=== PATIENT | female | born 1985 | race Two or more races ===

== ENCOUNTER 2021-07-28 17:08 | Emergency (ER) | payer OTHER ==
[~2021-07-28] VITALS: Ht 154.9 cm; Wt 60.0 kg
[2021-07-28 17:10] VITALS: BP 134/86
--- NOTE | 2021-07-28 19:31 | PHYS DOC ---
General Adult EDM: Chief Complaint: POST-OP PROBLEM HPI: HPI: Patient is a 36-year-old female who presents with green discharge and foul odor for the past 2-1/2 months. Patient is 3 months . "I have had light spotting ever since I had my last baby, and shortly after he started noticing a foul odor and greenish colored discharge". "I also have some nausea and felt like my belly feels bloated all the time". Patient denies fevers, denies dysuria. Patient has followed up with [facility] since giving . Patient has a follow-up appointment tomorrow. Patient denies abdominal pain. G6, P6. Denies medical history. (JAGDISH ELIZALDE APRN) Review of Systems: Review of Systems: Constitutional: Denies fever or chills Eyes: Denies change in visual acuity HENT: Denies nasal congestion or sore throat Respiratory: Denies cough or shortness of breath Cardiovascular: Denies chest pain or edema GI: Denies abdominal pain, nausea, vomiting, bloody stools or diarrhea /vaginal: Denies dysuria. Reports green-colored discharge and foul odor Musculoskeletal: Denies back pain or joint pain Integument: Denies rash Neurologic: Denies headache, focal weakness or sensory changes Endocrine: Denies polyuria or polydipsia Lymphatic: Denies swollen glands Psychiatric: Denies depression or anxiety (JAGDISH ELIZALDE APRN) Allergies: Allergies: Allergies Coded Allergies Type Severity Reaction Last Updated Verified No Known Drug Allergies 07/28/21 No (JAGDISH ELIZALDE APRN) Physical Exam: PE: Constitutional: Well developed, well nourished, no acute distress, non-toxic appearance. [] HENT: Normocephalic, atraumatic, bilateral external ears normal, oropharynx moist, no oral exudates, nose normal. [] Eyes: PERRLA, EOMI, conjunctiva normal, no discharge. [] Neck: Normal range of motion, no tenderness, supple, no stridor. [] Cardiovascular:Heart rate regular rhythm, no murmur [] Lungs & Thorax: Bilateral breath sounds clear to auscultation [] Abdomen: Bowel sounds normal, soft, no tenderness, no masses, no pulsatile masses. [] Skin: Warm, dry, no erythema, no rash. [] Back: No tenderness, no CVA tenderness. [] Extremities: No tenderness, no cyanosis, no clubbing, ROM intact, no edema. [] Neurologic: Alert and oriented X 3, normal motor function, normal sensory function, no focal deficits noted. [] Psychologic: Affect normal, judgement normal, mood normal. [] (JAGDISH ELIZALDE APRN) Current Patient Data: Vital Signs: Vital Signs Date Time Temp Pulse Resp B/P (MAP) Pulse Ox O2 Delivery O2 Flow Rate FiO2 07/28/21 17:08 98.4 66 16 134/86 (102) 98 Room Air (JAGDISH ELIZALDE APRN) EKG: EKG: [] (JAGDISH ELIZALDE APRN) Radiology/Procedures: Radiology/Procedures: [] (JAGDISH ELIZALDE APRN) Heart Score: C/O Chest Pain: No Risk Factors: Risk Factors: DM, Current or recent (<one month) smoker, HTN, HLP, family history of CAD, obesity. Risk Scores: Score 0 - 3: 2.5% MACE over next 6 weeks - Discharge Home Score 4 - 6: 20.3% MACE over next 6 weeks - Admit for Clinical Observation Score 7 - 10: 72.7% MACE over next 6 weeks - Early Invasive Strategies (JAGDISH ELIZALDE APRN) Course & Med Decision Making: Course & Med Decision Making Pertinent Labs and Imaging studies reviewed. (See chart for details) [] 36-year-old female presents 3 months with complaints of green discharge and foul odor. Patient also reports slight vaginal bleeding since the of her child. Patient is G6, P6. Patient is afebrile. Denies abdominal pain. Does report some intermittent nausea. GC/Chlamydia ordered for UA. Wet prep ordered to rule out BV and yeast. Will check urine for infection as well. Patient states that she is not concerned about STDs. Explained to patient that results for GC and chlamydia would take a couple of days. Patient has a follow-up appointment with her [facility]ESS[facility] tomorrow regarding same complaints. Patient reports that she needs to leave the emergency room and cannot wait for results. Advised patient we would follow-up tomorrow with vaginal swab results. Patient's pressures been okay with discharge plan. (JAGDISH ELIZALDE APRN) Donis Disclaimer: Dragon Disclaimer: This electronic medical record was generated, in whole or in part, using a voice recognition dictation system. (JAGDISH ELIZALDE APRN) Departure Departure: Impression: Primary Impression: Vaginal discharge Disposition: 01 HOME / SELF CARE / HOMELESS Condition: STABLE Referrals: PCP,NO (PCP) Additional Instructions: You were seen in the emergency room for vaginal discharge and odor. You have an appointment tomorrow with your [facility]ESSER. Make sure that you follow-up. I will follow up with you tomorrow with test results from vaginal swabs. If there is an infection present I will send you a prescription to your pharmacy of choice. EMERGENCY DEPARTMENT GENERAL DISCHARGE INSTRUCTIONS Thank you for coming to [facility] (ED) today and trusting us with you care. We trust that you had a positivie experience in our Emergency Department. If you wish to speak to the department management, you may call the director at [phone]. YOUR FOLLOW UP INSTRUCTIONS ARE FOLLOWS: 1. Do you have a private Doctor? If you do not have a private doctor, please ask for a resource list of physicians or clinics that may be able to assist you with follow up care. 2. The Emergency Physician has interpreted your x-rays. The X-Ray specialist will also review them. If there is a change in the findings, you will be notified in 48 hours when at all possible. 3. A lab test or culture has been done, your results will be reviewed and you will be notified if you need a change in treatment. ADDITIONAL INSTRUCTIONS AND INFORMATION: 1. Your care today has been supervised by a physician who is specially trained in emergency care. Many problems require more than one evaluation for a complete diagnosis and treatment. We recommend that you schedule your follow up appointment as recommended to ensure complete treatment of you illness or injury. If you are unable to obtain follow up care and continue to have a problem, or if your condition worsens, we recommend that you return to the ED. 2. We are not able to safely determine your condition over the phone nor are we able to give sound medical advice over the phone. For these safety reasons, if you call for medical advice we will ask you to come to the ED for further evaluation. 3. If you have any questions regarding these discharge instructions please call the ED at [phone]. SAFETY INFORMATION: In the interest of safety, wellness, and injury prevention; we encourage you to wear your sealbelt, if you smoke; quite smoking, and we encourage family to use a protective helmet for bicycling and other sporting events that present an increased risk for head injury. IF YOUR SYMPTOMS WORSEN OR NEW SYMPTOMS DEVELOP, OR YOU HAVE CONCERNS ABOUT YOUR CONDITION; OR IF YOUR CONDITION WORSENS WHILE YOU ARE WAITING FOR YOUR FOLLOW UP APPOINTMENT; EITHER CONTACT YOUR PRIMARY CARE DOCTOR, THE PHYSICIAN WHOSE NAME AND NUMBER YOU WERE GIVEN, OR RETURN TO THE ED IMMEDIATELY. Dragon Disclaimer This chart was dictated in whole or in part using Voice Recognition software in a busy, high-work load, and often noisy Emergency Department environment. It may contain unintended and wholly unrecognized errors or omissions. (BEA HUBBARD MD) JAGDISH ELIZALDE APRN Jul 28, 2021 19:31 BEA HUBBARD MD Jul 29, 2021 06:40
[2021-07-28 20:38] LABS: BILIRUBIN,URINE NEG (NEG); CLARITY,URINE CLEAR; COLOR,URINE YELLOW; GLUCOSE,URINE NEG (NEG); NITRITE,URINE NEG (NEG); UROBILINOGEN,URINE 0.2 mg/dL (0.2 mg/dL)
[2021-07-28 20:41] LABS: BACTERIA,URINE FEW /HPF (0-FEW); RBC,URINE 0 /HPF (0-2); WBC,URINE 0 /HPF (0-4)
== END 2021-07-28 21:15 | disposition home or self-care (01) ==
LOC: ER 17:08
DX: N89.8 Other specified noninflammatory disorders of vagina (principal); R14.0 Abdominal distension (gaseous)
CPT/HCPCS: 36415; 81001; 81025; 87491; 87591; 99283; Q0111